=== PATIENT | female | born 1995 | race Hispanic/Latino ===

== ENCOUNTER 2024-05-24 19:22 | Emergency (ER) | payer BC, SELFPAY ==
[2024-05-24 19:24] VITALS: BP 144/100
[2024-05-24 19:52] LABS: % Basophils 0.5 % (0-2); % Eosinophils 0.6 % (0-6); % Immature Granulocytes 0.4 % (0-0.5); % Lymphocytes 23.4 % (20.5-51.1); % Monocytes 6.2 % (1.7-9.3); % Neutrophils 68.9 % (42.2-75.2); Absolute Eosinophils 0.1 10^3/uL (0-0.7); Absolute Monocytes 0.5 10^3/uL (0.1-0.6); Absolute Neutrophils 5.8 10^3/uL (1.4-6.5); Hemoglobin 11.6 g/dL (12.0-16.0); Mean Corp Hgb Conc. 31.4 g/dL (33.0-37.0); Mean Corpuscular Hgb 22.2 pg (27.0-31.0); Mean Corpuscular Volume 70.7 fL (81.0-99.0); Mean Platelet Volume 8.4 fL (7.4-10.4); Nucleated Red Blood Cells % 0 %; Platelet Count 344 10^3/uL (130-400); Red Blood Cell Count 5.23 10^6/uL (4.20-5.40); Red Cell Dist. Width 16.5 % (11.5-14.5); White Blood Cell Count 8.4 10^3/uL (4.8-10.8)
[2024-05-24 20:00] LABS: Urine Albumin 1+ (Neg - Trace); Urine Bilirubin Negative (Negative); Urine Character Slightly Cloudy (Clear); Urine Color Yellow; Urine Glucose Negative (Negative); Urine Ketone Negative (Negative); Urine Leukocyte 1+ (Negative); Urine Nitrite Negative (Negative); Urine Occult Blood Negative (Negative); Urine Specific Gravity 1.025 (<1.030); Urine Urobilinogen Negative (Neg - 1+)
[2024-05-24 20:11] LABS: HCG, Serum Qualitative Screen Negative
[2024-05-24 20:13] LABS: ALT (SGPT) 15 U/L (0-35); AST (SGOT) 20 U/L (14-36); Albumin 4.4 g/dl (3.5-5.0); Alkaline Phosphatase 79 U/L (38-126); Blood Urea Nitrogen 11 mg/dl (7-17); Calcium 9.3 mg/dl (8.4-10.2); Carbon Dioxide 26 mmol/L (22-30); Chloride 104 mmol/L (98-107); Glucose 98 mg/dl (70-99); Lipase 101 U/L (23-300); Sodium 135 mmol/L (135-145); Total Bilirubin 0.5 mg/dl (0.2-1.3); Total Protein 7.5 g/dl (6.3-8.2); eGFR > 60.00
[2024-05-24 20:29] LABS: Urine Bacteria Moderate (Negative); Urine Red Blood Cell 0-2 /HPF (0-2); Urine Squamous Cell >30 /LPF (Few)
[2024-05-24 23:34] VITALS: BP 124/84
[2024-05-24 23:39] VITALS: BMI 29.7
--- NOTE | 2024-05-24 23:44 | ED.GENMED ---
History of Present Illness
General
Chief Complaint: Abdominal Pain
Source: patient, spouse and tax accountant ([id number])
Exam Limitations: none
Time Seen by Provider: 05/24/24 23:40
Nursing documentation reviewed up to this point in time: agreed with
History of Present Illness
History of Present Illness:
28-year-old female with no significant past medical history is here for epigastric pain that she has had all day since awakening but in the past 2 hours it has subsided. She has had similar pains off and on for the past 4 months. It usually starts
with nausea. This morning at work she felt nauseous and vomited once and then there was pressure pain (pointing to epigastric area). Pain was intermittent throughout the day, laying down helped ease the pain but she found she had to keep changing
positions. She denies taking NSAIDs. Denies change in the color of her stool. Denies nausea at this time. Denies diarrhea or constipation. Denies fever or chills. Denies urgency frequency or painful urination
Past History
Past History
ED Past Medical History: None
ED Past Surgical History: None
Social History
Tobacco: Non-smoker
Alcohol: Occasional
Personal:
Living: with family
Employment: Employed
Review of Systems
Review of Systems
Allergies reviewed?: Yes
All Other Systems: ROS reviewed and negative except as documented in HPI and ROS
Constitutional: Denies fever or fatigue
Respiratory: Denies trouble breathing
Cardiac: Denies chest pain
ABD/GI: Reports abdominal pain; Denies nausea, vomiting, diarrhea, constipated, bloody stools, black stools or anorexia
: Denies dysuria, frequency or difficulty voiding
Musculoskeletal: Reports no symptoms
Skin: Reports no symptoms
Neurological: Reports no symptoms
Phy Exam
Physical Exam
Physical Exam:
GENERAL: No acute distress. A&Ox3.
CONSTITUTIONAL: Afebrile.
EYES: clear, conjunctivae normal
ENMT: moist mucus membranes
RESPIRATORY: Regular respirations, nonlabored, lungs clear.
CARDIOVASCULAR: Regular rate and rhythm, no murmurs, no rubs.
GI: Soft, mildly tender mid upper abdomen, no tenderness to deep palpation of right upper quadrant or right lower quadrant or the rest of the abdomen. Nontender, normal BS
MUSCULOSKELETAL: Moves with ease. Well perfused.
SKIN: Warm, dry, pink
PSYCH: Normal mood and affect. Well kept, interactive and appropriate
NEUROLOGIC: Awake, alert and oriented. No focal neurological deficits
Course
Orders/Labs/Results
Orders:
Orders
05/24/24 19:27
Test Result ONCE
05/24/24 19:38
Complete Blood Count/With Diff Urgent
Comprehensive Metabolic Panel Urgent
HCG, Serum Qualitative Screen Urgent
Lipase Urgent
Urinalysis Reflex To Culture Urgent
Date Specimen was Collected: 05/24/24
Time Specimen was Collected: 19:27
Urine Microscopic Reflex Cult Urgent
Urine Culture Urgent
DEEPIKA Source: U
Specimen Description:
Date Specimen was Collected: 05/24/24
Time Specimen was Collected: 19:27
05/25/24 00:10
Pantoprazole [Protonix] 40 mg PO NOW STA
Abnormal Lab Results
05/24/24
19:38
Hgb 11.6 L g/dL
(12.0-16.0)
MCV 70.7 L fL
(81.0-99.0)
MCH 22.2 L pg
(27.0-31.0)
MCHC 31.4 L g/dL
(33.0-37.0)
RDW 16.5 H %
(11.5-14.5)
Leukocyte Esterase Rfl 1+ A
(Negative)
Urine WBC (Reflex) 11-15 A /HPF
(0-5)
Urine Bacteria (Reflex) Moderate A
(Negative)
Urine Albumin (Reflex) 1+ A
(Neg - Trace)
05/24/24 19:38
05/24/24 19:38
Vital Signs
Initial and Last Documented VS:
Initial Vital Signs
Temp Pulse Resp BP Pulse Ox
98.2 F 74 20 144/100 99
05/24/24 19:24 05/24/24 19:24 05/24/24 19:24 05/24/24 19:24 05/24/24 19:24
Last Documented Vital Signs
Temp Pulse Resp BP Pulse Ox
98.2 F 68 16 124/84 99
05/24/24 19:24 05/24/24 23:45 05/24/24 23:45 05/24/24 23:34 05/24/24 23:45
MDM/Problems Addressed
Differential Diagnosis Includes:
Gastritis, GERD, cholecystitis, biliary colic
MDM/Problems Addressed:
28-year-old female with no significant past medical history is here for epigastric pain that she has had all day since awakening but in the past 2 hours it has subsided. She has had similar pains off and on for the past 4 months. It usually starts
with nausea. This morning at work she felt nauseous and vomited once and then there was pressure pain (pointing to epigastric area). Pain was intermittent throughout the day, laying down helped ease the pain but she found she had to keep changing
positions. She denies taking NSAIDs. Denies change in the color of her stool. Denies nausea at this time. Denies diarrhea or constipation. Denies fever or chills. Denies urgency frequency or painful urination
Afebrile, NAD
CBC with no clinically significant abnormality
CMP normal
Lipase normal
No right upper quadrant tenderness, no elevation of bilirubin or liver enzymes, do not suspect cholecystitis or biliary colic.
This is most likely GERD, will trial Protonix and refer to GI for follow-up
She does have a PCP she can also follow-up with.
Prescription for Protonix sent to her pharmacy
*Critical Care Note
Total Time (30-74mins, 75-104mins- exclusive of procedures): Not Applicable
ED Attending Note
-
Portions of this chart may have been created with voice recognition software.� Occasional wrong word or��sound alike� substitutions may have occurred due to the inherent limitations of voice recognition software.
Discharge Plan
Departure
Patient Disposition: Home (Routine Discharge)
Date of Disposition: 05/25/24
Time of Disposition: 00:16
Patient with high blood pressure during this ER visit?: No
Condition: Good
Discharge Problem:
Epigastric abdominal pain
Instructions: Acid Reflux and GERD in Adults (DC), Lactose-Controlled Diet, Gluten-free diet, [place] diet
Prescriptions:
New
pantoprazole [Protonix] 40 mg tablet,delayed release (DR/EC)
40 mg PO DAILY Qty: 30 0RF
Referrals:
Elisha Adorno MD [Active] - Next open appointment
Activity Restrictions/Additional Instructions:
As we discussed, I sent a prescription to your pharmacy for Protonix (pantoprazole) to take daily
I have given you information on a bland diet, a lactose controlled diet and a gluten-free diet
You may try any 1 of these to see if it helps your symptoms.
I gave you the name of a GI (gastrointestinal)doctor.
Follow-up with the GI doctor or your family doctor in 2 to 3 weeks and let them know if the pantoprazole is helping
Interventions
Interventions:
*Risk Screen - Suicide Last Done: 05/24/24 23:40
*General Assessment Last Done: 05/24/24 19:24
*Neglect/Abuse Screening Last Done: 05/24/24 23:40
ED- Fall Risk Assessment Last Done: 05/24/24 23:40
*ED COVID-19 Vaccine History Last Done: 05/24/24 23:40
*Nursing Disposition Last Done: 05/25/24 00:26
[id number] Assessment Last Done: 05/24/24 23:39
Discharge Date and Time
Discharge Date/Time: 05/25/24 00:26
Print Language: YI
[2024-05-25] MEDS: PROTONIX 40 MG PO (00:19)
== END 2024-05-25 00:26 | disposition home or self-care (01) ==
LOC: EMR 19:22
PROVIDERS: Emergency Medicine; EMERGENCY PHYSICIAN Student in an Organized Health Care Education/Training Program
DX: R10.13 Epigastric pain (principal); R11.2 Nausea with vomiting, unspecified
CPT/HCPCS: 99283; 80053; 81003; 81015; 83690; 84703; 85025; 87086